=== PATIENT | male | born 1980 | race Hispanic/Latino ===

== ENCOUNTER 2020-03-22 09:08 | Outpatient (CLI) | payer OTHER ==
--- NOTE | 2020-03-22 11:56 | CT ---
CT ABDOMEN AND PELVIS WITH IV CONTRAST: Date: 03/22/2020 Oral contrast was given. INDICATION: Right lower quadrant pain. Constipation. FINDINGS: Lung bases clear. Liver, spleen, and pancreas unremarkable. Stomach and duodenum unremarkable. Adrenal glands and kidneys unremarkable. Small bowel loops appear normal. The appendix is identified and appears normal caliber. There are inflammatory changes in the right lo wer quadrant which appear to be related to diverticula arising from the sigmoid colon which projects into the right lower quadrant. The appendix abuts this area of inflammation, but does not appear infl josafat. The inflammation appears to arise from diverticula from this loop of sigmoid colon and would be most consistent with diverticulitis. There is no evidence of extraluminal fluid, gas, or abscess. Th ere is associated mural thickening at this site. Aorta normal caliber. Nonspecific periaortic and mesenteric lymph nodes. Osseous structures unremarkable. IMPRESSION: Inflammatory changes in the right lower quadrant. Inflammatory stranding surrounds a loop of sigmoid colon which projects into the right lower quadrant. There is associated diverticula at this site and the findings are felt to most likely represent diverticulitis related to the sigmoid colon. The appen francia is identified and does abut this area of inflammation; however, the appendix is normal size and a ppearance. POS: [facility]
== END 2020-03-22 09:09 | disposition home or self-care (01) ==
LOC: SCSCT 09:08
PROVIDERS: ATTEND Internal Medicine Gastroenterology
DX: R10.31 Right lower quadrant pain (principal); K59.00 Constipation, unspecified; K57.30 Diverticulosis of large intestine without perforation or abscess without bleeding
CPT/HCPCS: 74177